=== PATIENT | male | born 2005 | race Two or more races ===

== ENCOUNTER 2025-03-16 09:23 | Emergency (ER) | payer BC, SELFPAY ==
[2025-03-16 09:30] VITALS: BP 141/88; PULSE 87; RESP 17; TEMP 36.8; O2SAT 98; BMI 29.2
--- NOTE | 2025-03-16 10:09 | EDNOTE_ITS ---
ED Ear RME/HPI General Chief complaint: Ear Stated complaint: Right ear pain, runny nose, sore throat Time Seen by Provider: 03/16/25 09:56 Arrival date/time: 03/16/25 09:23 RME / HPI RME / HPI Narrative: Healthy 19-year-old male presents to the ER complaining of right-sided ear pain, sore throat, nasal congestion which began yesterday. Denies fever, dysphagia, cough, vomit, shortness of breath. Related Data Home Medications ?Medication ?Instructions ?Recorded ?Confirmed loratadine 10 mg tablet 10 mg PO QDAY 07/31/1907/31 Previous Rx's ?Medication ?Instructions ?Recorded ibuprofen 400 mg tablet 400 mg PO Q6H PRN fever or p ain 07/31/19 #10 tabs amoxicillin 500 mg capsule 500 mg PO BID #20 caps 03/06 06/30 Allergies Allergy/AdvReac Type Severity Reaction Status Date / Time peach Allergy Intermediate RASH Verified 03/16/25 09:27 ED Exam Narrative Physical exam: Constitutional: Patient alert and oriented. Well appearing. No acute distress. Not toxic appearing. Head: Normocephalic, atraumatic. Eyes: Periorbital regions bilaterally normal to inspection. Conjunctiva clear bilaterally. Sclera anicteric bilaterally. Pupils equal, round, reactive to light bilaterally. Extraocular movements intact bilaterally. Ears: External ears normal to inspection bilaterally. No mastoid tenderness bilaterally. EAC without edema or exudate bilaterally. TMs without erythema or bulging. Right EAC with cerumen impaction. Mouth/Throat: Mucous membranes moist. No stridor or muffled voice. Uvula midline. Rise and fall of soft palate normal. No tonsillar edema or exudate. No peritonsillar fullness. No trismus. Handling secretions without difficulty. Airway widely patent. Positive mild erythema of oropharynx. Neck: Supple. Trachea midline. No JVD. No nuchal rigidity. No midline tenderness or step-offs. Normal range of motion. Respiratory: Normal effort. No accessory muscle use or respiratory distress. Lungs clear to auscultation bilaterally without rhonchi, wheezes, or crackles. Cardiovascular: RRR. Normal S1/S2. No murmurs or rubs. Radial pulses intact bilaterally. Abdomen: Soft. Non-distended. Non-tender throughout. No pulsatile mass. No guarding or rebound. Back: No midline tenderness or step-offs. No CVA tenderness to palpation bilaterally. Upper Extremities: No gross deformities. Lower Extremities: No gross deformities. No edema or calf tenderness. Neuro: Speech normal. No gross motor or sensory deficits to upper or lower extremities bilaterally. GCS 15. CN II?XII grossly intact. Skin: Warm, dry, normal color. Psych: Normal affect. Cooperative. Normal insight. Course Course Course Narrative: MDM Suspect: viral URI complicated by pharyngitis and cerumen impaction without signs of additional focal bacterial infection indicating tx, doubt KINESIOLOGIST/parapharyngeal abscess/epiglottis given lack of mass effect in OP cavity (uvula midline, no muffled voice/stridor/tripoding/drooling, airway widely patent, tolerating secretions and PO without difficulty) No indication for CXR given absence of tachypnea, respiratory distress, and rales/decreased breath sounds. 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 Medication side effects and precautions discussed with the pt/legal guardian as well. Quality Measures none Orders Category Date Time Status Influenza A & B Rapid Panel Stat Lab 03/16/25 10:01 Completed Reevaluation(s) Reevaluation #1: At the time of reassessment, the patient remains alert and oriented ?3 with GCS 15. Vitals are normal, pain is controlled, and the patient is tolerating oral intake without nausea or vomiting. The patient is agreeable to discharge and verbalizes understanding of the diagnosis, studies, treatment plan, medications (including side effects/precautions), and strict ER return precautions as discussed in the ED. All concerns were addressed, and the patient is comfortable with the plan. Vital Signs Vital signs: Vital Signs Temperature 98.2 F 03/16/25 09:30 Pulse Rate 87 03/16/25 09:30 Respiratory Rate 17 03/16/25 09:30 Blood Pressure 141/88 H 03/16/25 09:30 Pulse Oximetry (%) 98 03/16/25 09:30 Oxygen Delivery Method Room Air 03/16/25 09:30 Ear Patient data External records reviewed:: None Clinical information provided by:: patient Social determinants that could affect healthcare access:: none Patient has the following chronic illnesses:: As noted How is presenting disease/condition affected by chronic disease/condition?: no chronic disease Evaluation data The following diagnostics were reviewed and interpreted by me:: other (specify) Lab and/or radiology exams considered but not ordered:: Labs and radiology considered, but not ordered as they were not clinically indicated at this time. Interpretation Summary: As noted Medications / Prescriptions Medications or Prescriptions considered but not ordered:: I considered prescription management (both outpatient prescriptions AND drug treatment in the ER) and decided that this was necessary and was prescribed as charted. Medication administrations:: As noted Consultations Consultation(s) initiated? (list below): No Diagnosis Most likely diagnosis given after review of the tests above:: As noted Admission Indicated Admission indicated?: not indicated Admission Request Was there a request for admission?: No Disposition Plan Disposition Plan: Discharge Discharge Attestation Discharge Attestation: The patient and all family members were given an opportunity to ask questions and understood the discharge instructions. Discharge instructions specifically effects, indications for sooner follow up or return to the emergency department, and the expected course of current diagnosis. Patient condition: Stable Medical Decision Making Lab Data Labs: Lab Results 03/16/25 Range/Units 10:01 Influenza A (Rapid) Negative Influenza B (Rapid) Negative Discharge Plan Plan Patient Disposition: HOME (Self Care) Prescriptions/Referrals Prescriptions/Med Rec: New amoxicillin 500 mg capsule 500 mg PO BID Qty: 20 0RF No Action loratadine 10 mg Tablet 10 mg PO QDAY ibuprofen 400 mg tablet 400 mg PO Q6H PRN (Reason: fever or pain) Qty: 10 0RF Problem List Clinical Impression: Pharyngitis, Cerumen impaction Patient/Caregiver Discharge Instructions Education Materials: Impacted Earwax, ED Pharyngitis, Report Pending Additional Instructions: Follow up with your primary medical doctor within 24 hours. Return to the Emergency Room immediately for any new, worsening, continuing symptoms or any concerns at all. Return to the Emergency Room within 24 hours if you are unable to follow up with your primary medical doctor within 24 hours. Use [employer] [id number] as directed. Print Language: Ecuadorean Stand Alone Forms: [employer] Award Info., Patient Portal Info Letter
[2025-03-16 11:23] LABS: Influenza A Ag Negative; Influenza B Ag Negative
== END 2025-03-16 13:36 | disposition home or self-care (01) ==
LOC: SERX 10:21
PROVIDERS: Physician Assistant; Emergency Provider Emergency Medicine; PCP Family Medicine
DX: H61.21 Impacted cerumen, right ear (principal)
CPT/HCPCS: 69209; 87502; 87651; 99283